=== PATIENT | female | born 1980 | race African-American/Black ===

== ENCOUNTER 2020-08-31 10:17 | Emergency (ER) | payer OTHER, SELFPAY ==
--- NOTE | ~2020-08-31 | US_ITS ---
EXAMINATION: US OB <=14 wk fetus w TV EXAM DATE: 08/31/2020 13:14 INDICATION: Abdominal pain, pelvic pain. . 1st trimester. TECHNIQUE: Pelvic obstetrical transabdominal sonogram was performed by a technologist. There are mu ltiple grayscale and Doppler images available for interpretation. There are no earlier studies of th is gestation for comparison. FINDINGS: Uterus measures 8.5 x 5.1 x 6.4 cm. At the uterine fundus there is anechoic cystic region, possible early intrauterine gestation sac with mean sac diameter of 8 mm corresponding to estimated gestational age 5 weeks 3 days. No yolk sac or pole identified within this. No extrauterine ges tation sac or pole identified. Right adnexa: The ovary measures 3.1 x 3.1 x 2.3 cm, has complex cystic lesion most likely the corpus luteal cyst measuring 2 cm. Ovarian vascular flow confirmed. Left adnexa: The ovary measures 3.0 x 1.2 x 1.7 cm and is morphologically normal. Ovarian vascular fl ow confirmed. IMPRESSION: 1. Possible early intrauterine gestation sac. Cannot confirm viable pole at this time. 2. Right ovarian cystic lesion likely corpus luteal cyst. Reviewed, dictated and finalized at location A.
[2020-08-31 10:48] VITALS: BP 125/88; PULSE 100; RESP 18; TEMP 35.9; O2SAT 100
[2020-08-31 11:54] LABS: Add Urine Microscopic? YES; Appearance Urine Cloudy (Clear); Bacteria Urine 1+ /hpf; Bilirubin Urine Negative (Negative); Blood Urine Negative (Negative); Color Urine Amber (Yellow); Glucose Urine UA Negative (Negative); Ketones Urine Negative (Negative); Leukocyte Esterase Ur 2+ LEU/UL (Negative); Mucus Urine Heavy /lpf; Nitrate Urine Negative (Negative); Protein Urine 2+ mg/dL (Negative); Specific Grav Ur 1.025 (1.001-1.035); Squamous Epithelial Cell Urine Many /hpf (Few); Urobilinogen Urine Negative mg/dL (<2.0); WBC Urine 21-30 /hpf
[2020-08-31 12:04] LABS: Basophils Percent Auto 0.5 % (0.2-1.2); Eosinophils Absolute Auto 0.1 K/mm3 (0-0.3); Eosinophils Percent Auto 1.6 % (0-4.4); Hematocrit 34.7 % (37.0-47.0); Hemoglobin 10.1 g/dL (12.0-15.0); Immature Granulocyte Absolute 0.01 K/mm3 (0.00-0.031); Immature Granulocyte Percent A 0.2 % (0-0.5); Lymphocytes Absolute Auto 1.96 K/mm3 (0.9-3.2); Lymphocytes Percent Auto 44.2 % (18.3-44.2); Mean Corpuscular HGB Conc 29.1 g/dl (32-36); Mean Corpuscular Hemoglobin 22.4 pg (26-34); Mean Corpuscular Volume 76.9 fl (80-100); Mean Platelet Volume 9.2 fl (7.4-10.4); Monocytes Absolute Auto 0.4 K/mm3 (0.1-0.6); Monocytes Percent Auto 9.9 % (2.6-8.5); Neutrophils Absolute Auto 1.9 K/mm3 (1.3-6.7); Neutrophils Percent Auto 43.6 % (45.5-73.1); Platelet Count Result 518 k/mm3 (150-375); Red Blood Count 4.51 M/mm3 (4.2-5.4); White Blood Count 4.4 K/mm3 (4.5-10.0)
[2020-08-31 12:12] LABS: Ovalocytes 1+ (NORMAL); Platelet Estimate Adequate (Adequate); Poikilocytosis 1+ (NORMAL)
[2020-08-31 12:17] LABS: Alanine Aminotransferase 15 U/L (4-35); Albumin Level 4.4 g/dL (3.5-5.1); Alkaline Phosphatase 67 U/L (38-126); Anion Gap 8 mmol/L (8-16); Aspartate Amino Transferase 27 U/L (14-36); Bilirubin,Total 0.2 mg/dL (0.2-1.3); Blood Urea Nitrogen 9 mg/dL (7-17); Calcium 9.2 mg/dL (8.4-10.2); Carbon Dioxide 22 mmol/L (22-30); Chloride 108 mmol/L (98-107); Estimated CRCL calculation 106 ml/min; Estimated Glomerular Filt Rate > 60; Glucose 100 mg/dL (65-105); Lipase 92 U/L (23-300); Sodium 138 mmol/L (137-145)
--- NOTE | 2020-08-31 12:17 | PC.NURSE ---
Pt ambulatory to ED RM 10.
--- NOTE | 2020-08-31 12:29 | ED.GENADULT ---
HPI - General Adult General Chief complaint: Unspecified Stated complaint: headache/backache Time Seen by Provider: 08/31/20 12:27 Source: patient Mode of arrival: ambulatory Limitations: no limitations History of Present Illness HPI narrative: Patient is a 40-year-old female complaining of right lower back pain, 5 out of 10, aching, nonradiating started 2 days ago. Patient also complaining of a headache, all, frontal, 2 out of 10, nonradiating that started 2 days ago. Patient states that she has a history of migraine headaches and this is her typical headache. Patient denies any speech or visual disturbance, focal weakness or numbness, unsteady gait, dizziness, neck pain or stiffness, nausea, vomiting, fever or chills. Related Data Allergies Allergy/AdvReac Type Severity Reaction Status Date / Time No Known Allergies Allergy Unverified 12/15/14 10:26 Review of Systems Review of Systems: All systems reviewed & are unremarkable except as noted in HPI and below Constitutional: Constitutional: Denies body ache(s), Denies chills, Denies excessive sweating, Denies fatigue, Denies fever(s), Denies headache(s), Denies lethargy, Denies malaise, Denies weakness and Denies weight loss Eyes: Eyes: Denies blurry vision, Denies change in vision and Denies loss of vision ENT: Denies dizziness, Denies ear discharge, Denies headache(s), Denies lip swelling, Denies epistaxis, Denies nasal congestion, Denies neck pain, Denies throat swelling and Denies tongue swelling Cardiovascular: Cardiovascular: Denies chest pain, Denies chest pain at rest, Denies chest pain with activity, Denies diaphoresis, Denies rapid heart rate, Denies edema, Denies irregular heart rhythm, Denies lightheadedness, Denies palpitations, Denies dyspnea and Denies dyspnea on exertion Respiratory: Respiratory: Denies chest congestion, Denies cough, Denies hemoptysis, Denies dyspnea and Denies dyspnea on exertion Gastrointestinal: Gastrointestinal: Denies abdominal pain, Denies melena, Denies hematochezia, Denies diarrhea, Denies nausea, Denies vomiting and Denies hematemesis Musculoskeletal: Musculoskeletal: Denies abnormal gait, Denies deformity, Denies joint swelling, Denies limited range of motion, Denies neck pain and Denies numbness Neurologic: Denies Abnormal speech present, Denies abnormal gait, Denies confusion, Denies dizziness, Denies focal weakness, Denies loss of vision, Denies numbness, Denies Other visual disturbances, Denies Sensory deficit (Neuro) and Denies weakness Psychiatric: Psychiatric: Denies confusion, Denies depression, Denies auditory hallucinations, Denies homicidal ideation and Denies suicidal ideation Endocrine: Endocrine: Denies cold intolerance, Denies excessive sweating, Denies fatigue, Denies heat intolerance and Denies palpitations Hematologic/Lymphatic: Hematologic/Lymphatic: Denies easy bleeding and Denies easy bruising Allergic/Immunologic: Allergic/Immunologic: Denies lip swelling, Denies throat swelling and Denies tongue swelling PMFSH Social History Social History Gender identity (if verbalized by the patient): Female Comments Past medical history: Headache Family history: Negative for any aneurysm, CVA, intracerebral hemorrhage Social history: Non-smoker no EtOH or drug use Exam Const: General: cooperative, healthy appearing, comfortable, no acute distress, well developed, alert and awake; No confusion Orientation/consciousness: oriented to person, oriented to place, oriented to time, patient oriented x3 and No confusion Limitations: no limitations Other: Patient laughing, making jokes about tell me I am not , not in any distress HENMT: Head: normal to inspection, normocephalic and atraumatic Ears: hearing grossly normal bilaterally, TM normal on the right and TM normal on the left General nose exam: Normal external nose present, Normal nares present and No nasal discharge present Face and sinus: normal facial exam
[2020-08-31 14:49] VITALS: BP 124/76; PULSE 76; RESP 20; O2SAT 99
[2020-08-31 15:57] VITALS: BP 122/85; PULSE 82; RESP 16
== END 2020-08-31 15:50 | disposition home or self-care (01) ==
PROVIDERS: General Practice; Emergency Provider Emergency Medicine; PCP Family Medicine
DX: O23.11 Infections of bladder in pregnancy, first trimester (principal); O99.351 Diseases of the nervous system complicating pregnancy, first trimester; G43.909 Migraine, unspecified, not intractable, without status migrainosus; O34.81 Maternal care for other abnormalities of pelvic organs, first trimester; N83.201 Unspecified ovarian cyst, right side; Z3A.01 Less than 8 weeks gestation of pregnancy
CPT/HCPCS: 36415; 76801; 76817; 80053; 81001; 81025; 83690; 84702; 85025; 87086; 87088; 99284

== ENCOUNTER 2020-10-01 02:45 | Emergency (ER) | payer OTHER, SELFPAY | END 2020-10-01 17:53 | disposition left against medical advice (07) | LOC: EXPBETH 10-15 17:28 | PROVIDERS: Emergency Provider Nurse Practitioner Family; PCP Family Medicine | DX: Z53.21 Procedure and treatment not carried out due to patient leaving prior to being seen by health care provider (principal) | CPT/HCPCS: 99199; 99211; G0463 ==

== ENCOUNTER 2020-10-01 13:56 | Emergency (ER) | payer OTHER, SELFPAY ==
--- NOTE | 2020-10-01 15:03 | PC.NURSE ---
left prior to being triaged
--- NOTE | 2020-10-01 15:29 | PC.NURSE ---
No answer when called for triage.
== END 2020-10-01 15:29 | disposition left against medical advice (07) ==
LOC: ANHED 15:44
PROVIDERS: PCP Family Medicine
DX: Z53.21 Procedure and treatment not carried out due to patient leaving prior to being seen by health care provider (principal)
CPT/HCPCS: 99199

== ENCOUNTER 2020-12-04 00:41 | Emergency (ER) | payer OTHER, SELFPAY ==
[2020-12-04 01:14] VITALS: BP 116/60; PULSE 59; RESP 16; TEMP 36.6; O2SAT 100
[2020-12-04 01:25] LABS: Basophils Percent Auto 0.3 % (0.2-1.2); Eosinophils Absolute Auto 0.2 K/mm3 (0-0.3); Eosinophils Percent Auto 3.3 % (0-4.4); Hematocrit 31.6 % (37.0-47.0); Hemoglobin 9.4 g/dL (12.0-15.0); Immature Granulocyte Absolute 0.02 K/mm3 (0.00-0.031); Immature Granulocyte Percent A 0.3 % (0-0.5); Lymphocytes Absolute Auto 2.51 K/mm3 (0.9-3.2); Lymphocytes Percent Auto 35.7 % (18.3-44.2); Mean Corpuscular HGB Conc 29.7 g/dl (32-36); Mean Corpuscular Hemoglobin 22.5 pg (26-34); Mean Corpuscular Volume 75.6 fl (80-100); Mean Platelet Volume 9.2 fl (7.4-10.4); Monocytes Absolute Auto 0.6 K/mm3 (0.1-0.6); Monocytes Percent Auto 8.5 % (2.6-8.5); Neutrophils Absolute Auto 3.7 K/mm3 (1.3-6.7); Neutrophils Percent Auto 51.9 % (45.5-73.1); Platelet Count Result 422 k/mm3 (150-375); Red Blood Count 4.18 M/mm3 (4.2-5.4)
--- NOTE | 2020-12-04 02:30 | PC.NURSE ---
pt seen ambulating out of ed. this rn asked her if she was leaving, pt didn't stop to talk, kept walking w/o difficulty. in no distress.
== END 2020-12-04 03:31 | disposition left against medical advice (07) ==
PROVIDERS: Emergency Provider General Practice; PCP Family Medicine
DX: N93.9 Abnormal uterine and vaginal bleeding, unspecified (principal)
CPT/HCPCS: 36415; 84702; 85025; 85461; 99199

== ENCOUNTER 2021-03-11 12:24 | Observation (INO) | payer OTHER, SELFPAY ==
[2021-03-11] VITALS (39 sets, daily range): BP systolic 125–126; BP diastolic 63–80; PULSE 79–216; RESP 20; TEMP 36.7; O2SAT 84–100; BMI 37.8
[2021-03-11] MEDS: TERBUTALINE SULFATE 1 MG/ML VIAL 0.25 MG SUB-Q ×2 (13:20→15:22)
--- NOTE | 2021-03-11 13:31 | OBADM ---
This patient, Bell Gtz, admitted to the OB room OB Post 116 for observation. Patient/family oriented to hospital policies and general routines including ID bracelet, bed and alarms, visiting hours, pain management, procedures, bathroom and other care routines, personal items, smoking policy, room service/diet, call light and visiting hours. Patient/Family are encouraged to report perceived risks to care and to ask questions if they do not understand what they are told or what they should do.
[2021-03-11 13:47] LABS: Add Urine Microscopic? YES; Appearance Urine Cloudy (Clear); Bacteria Urine Trace /hpf; Bilirubin Urine Negative (Negative); Blood Urine Negative (Negative); Calcium Oxalate Crystals Urine Present /hpf; Color Urine Yellow (Yellow); Glucose Urine UA Negative (Negative); Ketones Urine 1+ mg/dL (Negative); Leukocyte Esterase Ur 2+ LEU/UL (NEGATIVE); Mucus Urine Moderate /lpf; Nitrate Urine Negative (Negative); Protein Urine 1+ mg/dL (Negative); Specific Grav Ur 1.019 (1.001-1.035); Squamous Epithelial Cell Urine Many /hpf (Few); Urobilinogen Urine Negative mg/dL (<2.0); WBC Urine 21-30 /hpf (0-3)
--- NOTE | 2021-03-14 07:40 | P.PNOB_ITS ---
OB - Triage/Final Diagnosis Visit Information Comments/Additional reasons for admission: I have assessed the risk for this patient, Bell Gtz, and determined that she would benefit from observation care. Evaluation Laboratory results: Laboratory Tests 03/11/21 13:36 Urine Color Yellow Urine Appearance Cloudy H Urine pH 6.0 Ur Specific [place] 1.019 Urine Protein 1+ H Urine Glucose (UA) Negative Urine Ketones 1+ H Ur Blood (Man) Negative Urine Nitrate Negative Urine Bilirubin Negative Urine Urobilinogen Negative Ur Leukocyte Esterase 2+ H Urine RBC 3-5 H Urine WBC 21-30 H Ur Squamous Epith Cells Many H Calcium Oxalate Crystal Present Urine Bacteria Trace Urine Mucus Moderate H Final Diagnosis (1) contractions: Code(s): O47.00 - False labor before 37 completed weeks of gestation, unspecified trimester Status: Acute
== END 2021-03-11 17:25 | disposition home or self-care (01) ==
PROVIDERS: Admitting Provider Obstetrics & Gynecology; PCP Family Medicine; Visit Provider Obstetrics & Gynecology
DX: O47.03 False labor before 37 completed weeks of gestation, third trimester (principal); Z3A.32 32 weeks gestation of pregnancy
CPT/HCPCS: 81001; 87086; 87088; 96372; G0378; G0379; J3105

== ENCOUNTER 2021-04-04 23:32 | Observation (INO) | payer OTHER, SELFPAY ==
[2021-04-04 23:46] VITALS: BP 130/87; PULSE 92
[2021-04-05 00:01] VITALS: BP 121/78; PULSE 99
[2021-04-05 00:16] VITALS: BP 129/79; PULSE 94
[2021-04-05 00:31] VITALS: BP 126/82; PULSE 91
[2021-04-05] MEDS: AMPICILLIN 2 GM/NS 100 ML 2 GM/100 ML BAG IVPB (01:00)
[2021-04-05 01:22] VITALS: BMI 37.8
[2021-04-05 01:39] LABS: Hematocrit 35.1 % (37.0-47.0); Hemoglobin 10.6 g/dL (12.0-15.0); Mean Corpuscular HGB Conc 30.2 g/dl (32-36); Mean Corpuscular Hemoglobin 23.7 pg (26-34); Mean Corpuscular Volume 78.5 fl (80-100); Mean Platelet Volume 9.6 fl (7.4-10.4); Platelet Count Result 396 k/mm3 (150-375); Red Blood Count 4.47 M/mm3 (4.2-5.4); Red Cell Distribution Width 19.2 % (11.5-14.5); White Blood Count 6.6 K/mm3 (4.5-10.0)
[2021-04-05] MEDS: LACTATED RINGERS 1,000 ML 999 ML IV CONT (02:16)
[2021-04-05 02:58] LABS: Amphetamine Screen Urine Negative (Negative); Barbiturate Screen Urine Negative (Negative); Benzodiazepines Screen Urine Negative (Negative); Cannabinoid Screen Urine Negative (Negative); Cocaine Screen Urine Negative (Negative); Methadone Screen Urine Negative (Negative); Opiate Screen Urine Negative (Negative); Phencyclidine Screen Urine Negative (Negative)
--- NOTE | 2021-04-05 03:55 | OBADM ---
This patient, Bell Gtz, admitted to the OB room Labor/Delivery/Recovery 107 for observation. Patient/family oriented to hospital policies and general routines including ID bracelet, bed and alarms, visiting hours, pain management, procedures, bathroom and other care routines, personal items, smoking policy, room service/diet, and visiting hours. Patient/Family are encouraged to report perceived risks to care and to ask questions if they do not understand what they are told or what they should do.
[2021-04-07 10:11] LABS: Rapid Plasma Reagin Non-Reactive (NonReactive)
--- NOTE | 2021-04-15 08:18 | PM.OBTRLD ---
OB - Triage/Final Diagnosis Visit Information Comments/Additional reasons for admission: I have assessed the risk for this patient, Bell Gtz, and determined that she would benefit from observation care. Evaluation Laboratory results: Laboratory Tests 04/05/21 04/05/21 04/05/21 01:17 01:17 01:17 WBC 6.6 RBC 4.47 Hgb 10.6 L Hct 35.1 L MCV 78.5 L MCH 23.7 L MCHC 30.2 L RDW 19.2 H Plt Count 396 H MPV 9.6 Urine Opiates Screen Urine Methadone Screen Ur Barbiturates Screen Ur Phencyclidine Scrn Ur Amphetamine Screen U Benzodiazepines Scrn Urine Cocaine Screen U Cannabinoids Screen RPR Non-reactive Blood Type O Positive Antibody Screen Negative 04/05/21 01:23 WBC RBC Hgb Hct MCV MCH MCHC RDW Plt Count MPV Urine Opiates Screen Negative Urine Methadone Screen Negative Ur Barbiturates Screen Negative Ur Phencyclidine Scrn Negative Ur Amphetamine Screen Negative U Benzodiazepines Scrn Negative Urine Cocaine Screen Negative U Cannabinoids Screen Negative RPR Blood Type Antibody Screen Final Diagnosis (1) contractions: Code(s): O47.00 - False labor before 37 completed weeks of gestation, unspecified trimester Status: Acute
== END 2021-04-05 04:15 | disposition home or self-care (01) ==
PROVIDERS: Admitting Provider Obstetrics & Gynecology; PCP Family Medicine; Visit Provider Obstetrics & Gynecology
DX: O47.03 False labor before 37 completed weeks of gestation, third trimester (principal); Z3A.35 35 weeks gestation of pregnancy
CPT/HCPCS: 36415; 80307; 85027; 86592; 86850; 86900; 86901; 96374; G0378; G0379; J0290; J7120

== ENCOUNTER 2021-04-16 06:38 | Observation (INO) | payer OTHER, SELFPAY ==
[2021-04-16 07:30] VITALS: BMI 38.0
--- NOTE | 2021-04-16 07:30 | OBADM ---
This patient, Bell Gtz, admitted to the OB room 106 at 0638 for observation due to contractions. Patient/family oriented to hospital policies and general routines including ID bracelet, bed and alarms, visiting hours, pain management, procedures, bathroom and other care routines, personal items, smoking policy, room service/diet, and visiting hours. Patient/Family are encouraged to report perceived risks to care and to ask questions if they do not understand what they are told or what they should do.
--- NOTE | 2021-04-25 07:18 | PM.OBTRLD ---
OB - Triage/Final Diagnosis Visit Information Comments/Additional reasons for admission: I have assessed the risk for this patient, Bell Gtz, and determined that she would benefit from observation care. Final Diagnosis (1) contractions: Code(s): O47.00 - False labor before 37 completed weeks of gestation, unspecified trimester Status: Acute
== END 2021-04-16 10:42 | disposition home or self-care (01) ==
PROVIDERS: Admitting Provider Obstetrics & Gynecology; PCP Family Medicine; Visit Provider Obstetrics & Gynecology
DX: O47.1 False labor at or after 37 completed weeks of gestation (principal); Z3A.37 37 weeks gestation of pregnancy
CPT/HCPCS: G0378; G0379

== ENCOUNTER 2021-04-20 10:22 | Observation (INO) | payer OTHER, SELFPAY ==
--- NOTE | 2021-04-22 13:24 | PM.OBTRLD ---
OB - Triage/Final Diagnosis Visit Information Date of evaluation: 04/20/21 Reason for evaluation: threatened labor Comments/Additional reasons for admission: I have assessed the risk for this patient, Bell Gtz, and determined that she would benefit from observation care.
== END 2021-04-20 11:15 | disposition home or self-care (01) ==
PROVIDERS: Admitting Provider Obstetrics & Gynecology; PCP Family Medicine; Visit Provider Obstetrics & Gynecology
DX: O47.1 False labor at or after 37 completed weeks of gestation (principal); Z3A.38 38 weeks gestation of pregnancy
CPT/HCPCS: 84112; G0378; G0379

== ENCOUNTER 2021-04-21 00:02 | Inpatient (IN) | payer OTHER, SELFPAY ==
[2021-04-21] VITALS (18 sets, daily range): BP systolic 114–152; BP diastolic 65–92; PULSE 82–116; RESP 12–20; TEMP 36.4–37.1; O2SAT 99–100; BMI 37.0
--- NOTE | 2021-04-21 00:02 | LDADM ---
This patient, Bell Gtz, was admitted to Labor/Delivery/Recovery 106 on 04/21/21 at 00:02. Plans for labor, pain management and were discussed with patient. Patient/family oriented to hospital policies and general routines including ID bracelet, bed and alarms, visiting hours, pain management, procedures, bathroom and other care routines, personal items, smoking policy, room service/diet and guest tray routines, infant security routines, and visiting hours. Patient/Family are encouraged to report perceived risks to care and to ask questions if they do not understand what they are told or what they should do. See OBIX for further documentation.
--- OUTSIDE RECORDS SUMMARY | 2021-04-21 00:21 | XMS_ITS | Encounter Summary ---
:1980 Author Reason for Visit None recorded. Assessment and Plan 1. Placenta circumvallata ? US, obstetric, follow-up Discussion Note: None recorded.Patient educational handouts: No information available. Plan of Care Reminders Provider Appointments Ob Routine Silvio Stiles, ROSY 04/28/2021 1:45PM ? U/S OB BPP Ultras ound, TECH 04/28/2021 1:00PM ? Nst Nst, , EQUI P 04/28/2021 12:30PM ? Ob Routine Zulma Stiles CNM 05/05/2021 1:45PM ? U/S OB BPP Ultras ound, TECH 05/05/2021 1:00PM ? Nst Nst, , EQUI P 05/05/2021 12:30PM Lab None ? ? recorded. Referral None ? ? recorded. Procedures None ? ? recorded. Surgeries None ? ? recorded. Imaging Franco ALBARADO Obstetric, Follow-up 02/17/2021 Medications Name Start Date ? ? hydrocortis
--- OUTSIDE RECORDS SUMMARY | 2021-04-21 00:21 | XMS_ITS | Encounter Summary ---
:1980 Author Reason for Visit OB visit Assessment and Plan 1. Advanced maternal age 2. care: grand multipa rity 3. Vaginal delivery following pr evious section 4. History of premature delivery Discussion Note: None recorded.Patient educational handouts: No information available. Plan of Care Reminders Provider Appointments Ob Routine Silvio Stiles, JACQUE 04/28/2021 1:45PM ? U/S OB BPP Ultras ound, TECH 04/28/2021 1:00PM ? Nst Nst, , EQUI P 04/28/2021 12:30PM ? Ob Routine JACQUE Stanford 05/05/2021 1:45PM ? U/S OB BPP Ultras ound, TECH 05/05/2021 1:00PM ? Nst Nst, , EQUI P 05/05/2021 12:30PM Lab None ? ? recorded. Referral None ? ? recorded. Procedures None ? ? recorded. Surgeries None ? ? recorded. Imaging None ? ? recorded. Medications Name Start Date ?
--- OUTSIDE RECORDS SUMMARY | 2021-04-21 00:21 | XMS_ITS | Encounter Summary ---
:1980 Author Reason for Visit OB visit OB [id number] EDC 05/04/2021 LMP 08/05/2020 Assessment and Plan Assessment Note Patient is _25__weeks . Dis cussed plan. 1. Routine care Discussion Note: None recorded.Patient educational handouts: No information available. Plan of Care Reminders Provider Appointments Ob Routine Silvio Stiles CNM 04/28/2021 1:45PM ? U/S OB BPP Ultras [...] ? recorded. Medications Name Start Date ? ?
--- OUTSIDE RECORDS SUMMARY | 2021-04-21 00:21 | XMS_ITS | Encounter Summary ---
:1980 Author Reason for Visit OB visit OB [id number] EDC 05/04/2021 LMP Assessment and Plan Assessment Note Patient is __32_weeks . Dis cussed plan. 1. Routine care [...]
--- OUTSIDE RECORDS SUMMARY | 2021-04-21 00:21 | XMS_ITS ---
:1980 Author Care Team Providers Name Role Phone Mary Mackay Primary Care Provider Unavailable Allergies Code Code System Name Reaction Severity Status Onset NKDA ? Medications Name Status Start Date Stop Date ? ? azithromycin 500 mg tablet Active ? Not a vailable [place] 8 % vaginal gel Completed ? 04/09/20 Insert 1 applicatorful every day by vaginal route at bedtime. cyclobenzaprine 10 mg tablet Completed ? ergocalciferol (vitamin D2) 1,250 mcg Completed ? 04/09/2021 (50,000 unit) capsule metronidazole 500 mg tablet Active ? Not available hydrocortisone 2.5 % topical cream with Active ? Not available perineal applicator naproxen 500 mg tablet Completed ? nitrofurantoin Completed ? 01/24/2021 monohydrate/macrocrystals 100 mg capsule ondansetron HCl 4 mg tablet Active ? Not available Active ? Not available Problems Name Status Onset Date Source ? Active 10/29/2020 ? Vaginal Delivery Following Previous Active ? ? Section Care: Grand Multiparity Active ? ? History of Premature Delivery Active ? ? Advanced Maternal Age Active ? ? Procedures Date Name Performed by ? 09/29/1999 Section Information not hunter nevarez
--- OUTSIDE RECORDS SUMMARY | 2021-04-21 00:21 | XMS_ITS | Encounter Summary ---
:1980 Author Reason for Visit None recorded. Assessment and Plan 1. Maternal obesity complicating , childbirth and the puerperium, antepartum ? US, obstetric, biophysical profile + non-stress test Discussion Note: None recorded.Patient educational handouts: No [...] , EQUI P 05/05/2021 12:30PM Lab None recorded. ? ? Referral None recorded. ? ? Procedures None recorded. ? ? Surgeries None recorded. ? ? Imaging US, Obstetric, Amber Irvin
--- OUTSIDE RECORDS SUMMARY | 2021-04-21 00:21 | XMS_ITS | Encounter Summary ---
:1980 Author Reason for Visit OB visit Assessment and Plan Assessment Note Patient is ___weeks . Discu ssed plan. 1. Routine care Discussion Note: None [...] recorded. Medications Name Start Date ? ? hydroco
--- OUTSIDE RECORDS SUMMARY | 2021-04-21 00:21 | XMS_ITS | Encounter Summary ---
:1980 Author Reason for Visit None recorded. Assessment and Plan 1. Advanced maternal age ? non-stress test Discussion Note: None recorded.Patient educational handouts: No information available. Plan of Care Reminders Provider Appointments Ob Routine Silvio Stiles, [facility] 04/28/2021 1:45PM ? U/S OB BPP Ultras [...] recorded. Surgeries None ? ? recorded. Imaging Non-stress [place] Test 04/09/2021 Medications Name Start Date ? ? hydrocorti
--- OUTSIDE RECORDS SUMMARY | 2021-04-21 00:21 | XMS_ITS | Encounter Summary ---
:1980 Author Reason for Visit OB visit OB [id number] EDC 05/04/2021 LMP 08/05/2020 Assessment and Plan Assessment Note Patient is __35_weeks . Dis cussed plan. 1. Hemorrhoids ? Anusol-HC 2.5 % topical cr eam with perineal applicator 2. Routine care Discussion Note: None recorded.Patient educational [...]
--- OUTSIDE RECORDS SUMMARY | 2021-04-21 00:21 | XMS_ITS | Encounter Summary ---
:1980 Author Reason for Visit None recorded. Assessment and Plan 1. Advanced maternal age ? non-stress test Discussion Note: None recorded.Patient educational handouts: No information available. Plan of Care Reminders Provider Appointments Ob Routine Silvio Stiles, [facility] 04/28/2021 1:45PM ? U/S OB BPP Ultras [...] ? recorded. Imaging Non-stress [place] Test 04/14/2021 Medications Name Start Date ? ? hydrocorti
--- OUTSIDE RECORDS SUMMARY | 2021-04-21 00:21 | XMS_ITS | Encounter Summary ---
:1980 Author Reason for Visit None recorded. Assessment and Plan 1. Advanced maternal age ? US, obstetric, biophysical profile + non-stress test Discussion Note: None recorded.Patient educational handouts: No information available. Plan of Care Reminders Provider Appointments Ob Routine Silvio Stiles, ROSY 04/28/2021 1:45PM ? U/S OB BPP Ultras ound, TECH 04/28/2021 1:00PM ? Nst Nst, , EQUI P 04/28/2021 12:30PM ? Ob Routine Zulma Stiles, JACQUEM 05/05/2021 1:45PM ? U/S OB BPP Ultras ound, TECH 05/05/2021 1:00PM ? Nst Nst, , EQUI P 05/05/2021 12:30PM Lab None recorded. ? ? Referral None recorded. ? ? Procedures None recorded. ? ? Surgeries None recorded. ? ? Imaging US, Obstetric, Amber claudio Biophysical Profile + 04/14/2021 Non-stress Test
--- OUTSIDE RECORDS SUMMARY | 2021-04-21 00:21 | XMS_ITS | Encounter Summary ---
:1980 Author Reason for Visit OB visit 34w2d Assessment and Plan 1. Routine care Discussion Note: None recorded.Patient [...] recorded. Medications Name Start Date ? ? hydrocortisone 2.5 % topical cream with perineal appli cator ? APPLY A THIN LAYER TO THE AFFECTED AR
--- OUTSIDE RECORDS SUMMARY | 2021-04-21 00:21 | XMS_ITS | Encounter Summary ---
:1980 Author Reason for Visit OB visit 35W2D Assessment and Plan 1. Routine care Discussion [...]
--- OUTSIDE RECORDS SUMMARY | 2021-04-21 00:21 | XMS_ITS | Encounter Summary ---
:1980 Author Reason for Visit None recorded. Assessment and Plan 1. AND/OR placental disord er affecting management of mother ? US, obstetric, limited Discussion Note: None recorded.Patient educational handouts: No information available. Plan of Care Reminders Provider Appointments Ob Routine Silvio Stiles, JACQUE 04/28/2021 1:45PM ? U/S OB BPP Ultras ound, TECH 04/28/2021 1:00PM ? Nst Nst, , EQUI P 04/28/2021 12:30PM ? Ob Routine Zulma Stiles, ROSY 05/05/2021 1:45PM ? U/S OB BPP Ultras ound, TECH 05/05/2021 1:00PM ? Nst Nst, , EQUI P 05/05/2021 12:30PM Lab None ? ? recorded. Referral None ? ? recorded. Procedures None ? ? recorded. Surgeries None ? ? recorded. Imaging , Franco Obstetric, Limited 03/11/2021 Medications Name Start Date ? ?
--- OUTSIDE RECORDS SUMMARY | 2021-04-21 00:21 | XMS_ITS | Encounter Summary ---
:1980 Author Reason for Visit None recorded. Assessment and Plan 1. Uterine size for dates discre pancy ? US, obstetric, follow-up Discussion Note: None [...] ? recorded. Imaging Franco ALBARADO Obstetric, Follow-up 03/25/2021 Medications Name Start Date ? ?
[2021-04-21] MEDS: AMPICILLIN 2 GM/NS 100 ML 2 GM/100 ML BAG IVPB (00:25)
[2021-04-21] MEDS: LACTATED RINGERS 1,000 ML 125 ML IV CONT ×3 (00:25→03:34)
[2021-04-21 00:35] LABS: Basophils Percent Auto 0.2 % (0.2-1.2); Eosinophils Absolute Auto 0.1 K/mm3 (0-0.3); Eosinophils Percent Auto 1.1 % (0-4.4); Hematocrit 34.6 % (37.0-47.0); Hemoglobin 10.7 g/dL (12.0-15.0); Immature Granulocyte Absolute 0.01 K/mm3 (0.00-0.031); Immature Granulocyte Percent A 0.2 % (0-0.5); Lymphocytes Absolute Auto 1.81 K/mm3 (0.9-3.2); Lymphocytes Percent Auto 28.5 % (18.3-44.2); Mean Corpuscular HGB Conc 30.9 g/dl (32-36); Mean Corpuscular Hemoglobin 23.9 pg (26-34); Mean Corpuscular Volume 77.4 fl (80-100); Mean Platelet Volume 9.1 fl (7.4-10.4); Monocytes Absolute Auto 0.6 K/mm3 (0.1-0.6); Monocytes Percent Auto 9.4 % (2.6-8.5); Neutrophils Absolute Auto 3.9 K/mm3 (1.3-6.7); Neutrophils Percent Auto 60.6 % (45.5-73.1); Platelet Count Result 362 k/mm3 (150-375); Red Blood Count 4.47 M/mm3 (4.2-5.4); Red Cell Distribution Width 18.4 % (11.5-14.5); White Blood Count 6.4 K/mm3 (4.5-10.0)
--- NOTE | 2021-04-21 00:50 | WPDOBADMIT ---
Obstetrics - Admit Note Admission Note: record reviewed. No pertinent additions to the history and/or any subsequent changes in the physical findings that are not consistent with the expected course of the were found. Pt is a hx previous for PTL, has had successful x 4. GBS + arrived in active labor Additions to the history and/or subsequent changes in the physical findings follow. None.
[2021-04-21] MEDS: OXYTOCIN 30 UNITS/NS 500 ML 30 UNITS/500 ML BAG 999 UNITS IV CONT (04:05)
--- NOTE | 2021-04-21 04:14 | PM.OBPRVD ---
OB - Delivery Note Procedure Delivery date: 04/21/21 Procedure: Intrapartal events: None Induction method: none Delivery augmentation: rupture of membranes Delivery monitor: external FHT and external uterine Route of delivery: Episiotomy description: None Laceration Description: None Specimen: No Quantitative Blood Loss (ml): 33 Anesthesia type: None Disposition: floor Floweree Baby Date of : 04/21/21 Time of : 04:02 Weeks of gestation at delivery: 38 gender: Female Weight (pounds): 6 Weight (ounces): 12 presentation: vertex position: Left Occiput Anterior Placenta delivery description: Spontaneous cord vessel description: 3 Vessels, Nuchal Cord, Loose, Reduced and Clamped/Cut score one minute: 9 score five minutes: 9 Narrative: mother and baby skin to skin in stable condition
[2021-04-21] MEDS: OXYTOCIN 30 UNITS/NS 500 ML 30 UNITS/500 ML BAG 125 UNITS IV CONT (04:55)
[2021-04-21] MEDS: IBUPROFEN 600 MG TABLET PO ×2 (05:21→15:49)
[2021-04-21] MEDS: WITCH HAZEL 40 PADS 1 PAD TOPICAL (05:21)
[2021-04-21] MEDS: BENZOCAINE 20% AER SPR (*SP) 56 GM CAN 1 SPRAY TOPICAL (05:21)
--- NOTE | 2021-04-21 08:15 | PC.NURSE ---
Consult with pt.,mother called out to assist with waking for feeding. Mother reports eagerly fed for first feeding. This is mother's 9th child to breastfeed. Infant is able to freely thrust tongue past gum ridge and flange both lips. Skin is intact on both nipples, no redness and bruising noted. Reviewed feeding cues, frequencies, duration of feedings, feeding elimination flow sheet, and signs of adequate intake. Demonstrated stimulation techniques to wake infant for feeding. Assisted with infant to breast. Reviewed positioning/alignment in cross cradle, holding breast in ?U? hold and guided asymmetrical latch on. Reviewed rational for each. made a few attempts to latch and return to sleep, attempt for 15 minutes. Advised to skin to skin and attempt again in 30 minutes. Instructed mother to call out for RN assistance if infant shows feeding cues before 30 minutes.
--- NOTE | 2021-04-21 09:00 | PC.NURSE ---
Assisted with infant to breast. Reviewed positioning/alignment in cross cradle, holding breast in ?U? hold and guided asymmetrical latch on. Reviewed rational for each. made a few attempts to latch and return to sleep, attempt for 15 minutes. Advised to skin to skin and attempt again in for 1 hour . Instructed mother to call out for RN assistance if shows feeding cues before 30 minutes.
--- NOTE | 2021-04-21 09:17 | OBPPTRN ---
[id number] Patient transferred to post room #292 via W/C. Support person present. Oriented to unit, room, information board, rooming in, admission packet and security measures. Patient verbalizes understanding.
--- NOTE | 2021-04-21 10:05 | PC.NURSE ---
Assisted with infant to breast. Reviewed positioning/alignment in cross cradle, holding breast in ?U? hold and guided asymmetrical latch on. Reviewed rational for each. made a few attempts to latch and return to sleep, attempt for 15 minutes. attempted with sugar water on a gloved finger. Weak suck noted. Advised to skin to skin and attempt again in for 1 hour . Instructed mother to call out for RN assistance if shows feeding cues before 30 minutes.
--- NOTE | 2021-04-21 11:30 | PC.NURSE ---
Assisted with infant to breast. Reviewed positioning/alignment in cross cradle, holding breast in ?U? hold and guided asymmetrical latch on. Reviewed rational for each. made a few attempts to latch and return to sleep, attempt for 15 minutes. Discussed feeding freq and timing from last feeding. Mother will supplement infant 10-15 mls. Report to primary RN for infant blood glucose.
[2021-04-21 14:39] LABS: Rapid Plasma Reagin Non-Reactive (NonReactive)
[2021-04-21] MEDS: DOCUSATE SODIUM 100 MG CAPSULE PO (15:49)
[2021-04-21] MEDS: ACETAMINOPHEN 325 MG TABLET 650 MG PO (19:56)
[2021-04-21] MEDS: DIBUCAINE 1% OINTMENT 30 GM TUBE 1 APPLIC TOPICAL (19:56)
[2021-04-22 03:30] VITALS: BP 135/75; PULSE 81; RESP 16; TEMP 36.4; O2SAT 100
[2021-04-22 05:13] LABS: Hematocrit 31.8 % (37.0-47.0); Hemoglobin 9.7 g/dL (12.0-15.0)
--- NOTE | 2021-04-22 07:40 | PM.OBPNVD ---
OB - PN: Subj Subjective Date/time seen: 04/22/21 07:40 Patient comments: no complaints baby status: doing well OB - PN: Obj Data Labs CBC & Chem 7: 04/22/21 05:06 Labs: Laboratory Results - last 24 hr 04/21/21 04/22/21 00:31 05:06 Hgb 9.7 L Hct 31.8 L RPR Non-reactive OB - PN A/P Plan day: 1 Plan: routine care Time Spent With Patient Time: Total time spent is greater than 50% in coordination of care (as documented) at patient's floor/unit and/or counseling patient: Time with patient: less than 15 minutes Review of Systems Review of Systems: All systems reviewed & are unremarkable except as noted in HPI and below Exam Narrative: Fundus firm and vaginal flow controlled. No lower ext redness, warmth, or edema. Negative homans. Const: General: comfortable Chest: Breast/axilla inspection: normal inspection of the breasts Resp: Effort & Inspection: normal respiratory effort Cardio: Rate: regular rate GI: GI Palp: Yes Soft to palpation Psych: Appearance: grossly normal Affect: normal affect Attitude: cooperative Thought content: Yes Normal thought content present Judgement: Good judgement present (Psych)
[2021-04-22 08:05] VITALS: BP 125/78; PULSE 88; RESP 18; TEMP 37.4; O2SAT 100
[2021-04-22] MEDS: MULTIVIT/MIN/PREN/FOL AC/IRON TABLET 1 TAB PO (08:27)
[2021-04-22] MEDS: IBUPROFEN 600 MG TABLET PO (08:28)
[2021-04-22] MEDS: DOCUSATE SODIUM 100 MG CAPSULE PO (08:28)
[2021-04-22] MEDS: POLYSACCHARIDE IRON COMPLEX 150 MG CAPSULE PO (08:28)
--- NOTE | 2021-04-22 09:00 | PC.NURSE ---
Consult with pt., observed mother is able to independently latch with appropriate positioning/alignment. is more awake and eagerly latches on first attempt with long rhythmical draws and frequent swallowing noted. She denies any nipple discomfort, is feeding as required and waking to feed if needed. Infant has had several 8 effective feedings in the past 24 hours, and is currently meeting outcomes for weight, output, jaundice and feeding frequencies. Mother will continue to supplement until her milk is in and is more consistently . Mother states she feels confident to continue effective /supplementing at home. Reviewed transition to breast milk, signs of adequate intake, and engorgement/relief. Instructed to call ICP if intake/output less than required. Reviewed regular medications mother is taking. Information provided per Kateryna. Reviewed community resources on the [employer] website and in the Mom/Baby guide. Information on outpatient services provided. Mother has no further questions at this time. Instructed feeding should be initiated three hours from start of last feeding or if feeding cues are noted before until seen by ICP. Mother voiced understanding of information shared.
--- NOTE | 2021-04-22 16:31 | PC.NURSE ---
Patient viewed the discharge video Mother & Baby Care, The First Two Weeks . Patient was given the opportunity and encouraged to ask questions. Patient verbalized understanding of information shared and has been given the mother/baby guide for home reference.
[2021-04-23 11:29] VITALS: BP 131/82; PULSE 100; RESP 20; TEMP 37.3; O2SAT 99
--- NOTE | 2021-05-13 19:09 | PM.OBDSVD ---
DS: Admitting Diagnosis Discharge Date 04/22/21 Admitting Diagnosis labor OB - DS: Summary OB Procedures : None OB Procedures Intrapartum: Spontaneous Vag Delivery OB Procedures: : None Time Spent with Patient Time attestation: Total time spent providing and/or coordinating discharge services: Discharge Plan Discharge Attending physician on discharge: Catie Alfaro Consulting providers: Catie Alfaro ; Zulma Stiles Discharging Clinician: Zulma Stiles Patient Disposition: Home, Self-Care Activity: pelvic rest Diet: as tolerated Discharge Instructions: Education: Mom and Baby Guide Given to: Mother Follow-Up: Call your delivering provider's office for an appointment to be seen in: 6 Weeks Mom and baby should come to the [facility] for the follow-up appointment. Appointment Date/Time: Friday, April 23, 2021 at 11:00 am What to expect at your follow-up visit: Physical Assessment Call [phone] if you are unable to keep your appointment time. BREAST CARE: * Wear a snug supportive bra. * For engorgement discomfort: Breast Feeding: * Apply warm moist washcloths * Express milk as needed to relieve engorgement * Wear loose clothing Bottle Feeding: * May apply ice packs * For sore nipples: * Identify correct latch-on * Apply warm moist washcloths before and after nursing * Air dry nipples after nursing * May apply Lansinoh cream to nipples EPISIOTOMY/PERINEAL CARE: * Until bleeding stops, use your jackie bottle after urinating * Change your pad frequently throughout the day * You may take sitz baths several times a day (fill your bathtub with warm water and soak for 20 minutes.) Do NOT bathe in the water * No tub baths until seen by your physician - You may shower ACTIVITY: * Rest as much as possible. * Do not exercise or lift anything heavier than your baby (such as laundry or other children.) * Avoid stairs or driving as much as possible. * Do not put anything into the vagina. No douching, tampons, or sexual activity until seen by physician. NOTIFY PHYSICIAN IF YOU HAVE ANY QUESTIONS OR IF ANY OF THE FOLLOWING SYMPTOMS OCCUR: * If your episiotomy or incision becomes red, swollen, or more painful than what you have experienced in the hospital. * If your vaginal bleeding becomes foul smelling. * If your vaginal bleeding becomes more heavy than a period or if your bleeding changes from pink to bright red. However, you may pass an occasional walnut-sized clot once or twice for the first week . * If you experience a sharp, shooting pain in you calves. * If you discover a hard, reddened area on your breast or if you experience flu-like symptoms. DIET: * Eat regular, well-balanced meals. * Drink plenty of fluids daily. If , drink to thirst. Patient Instructions: Antibiotic Form Follow-up/Referrals: Catie Alfaro CNM [Certified Nurse Packaging Sales Consultant] - Discharge Medications: Continued Slow Fe 142 mg (45 mg iron) Tablet Extended Release 142 mg PO DAILY RF: 0 PNV [id number] [] 28 mg iron- 800 mcg Tablet 1 tablet PO DAILY RF: 0 Date of admission: 04/21/21 00:02 Primary Care Provider: Quique Hillman Admitting Provider: Fabian Davis Attending physician on admission: Fabian Davis Condition: Stable
== END 2021-04-22 11:50 | disposition home or self-care (01) | DRG 560 ==
LOC: ANHLDR 00:30 → ANHOB2 06:48
PROVIDERS: Advanced Practice Midwife; Admitting Provider Obstetrics & Gynecology; PCP Family Medicine; Visit Provider Obstetrics & Gynecology
DX: O34.211 Maternal care for low transverse scar from previous cesarean delivery (principal); Z37.0 Single live birth; Z3A.38 38 weeks gestation of pregnancy; O99.824 Streptococcus B carrier state complicating childbirth; O69.81X0 Labor and delivery complicated by cord around neck, without compression, not applicable or unspecified
CPT/HCPCS: 36415; 85014; 85018; 85025; 86592; 86850; 86900; 86901; A9270; J0290; J2590; J7120

== ENCOUNTER 2021-12-20 18:34 | Emergency (ER) | payer OTHER, SELFPAY ==
[2021-12-20 18:44] VITALS: BP 136/79; PULSE 92; RESP 20; TEMP 37.1; O2SAT 100
--- NOTE | 2021-12-20 18:57 | ED.EYEPROB ---
HPI - Eye Problem General Chief complaint: Eye Problems Stated complaint: Eye Injury Time Seen by Provider: 12/20/21 18:57 Source: patient Mode of arrival: ambulatory Limitations: no limitations History of Present Illness HPI Narrative: 41-year-old female presented for complaint of right eye injury today. She states her infant poked her in the eye at around 0800 today. Since then it has continued to be painful, endorses photosensitivity and tearing. Has not taken anything for symptoms. chief complaint: eye pain Related Data Allergies Allergy/AdvReac Type Severity Reaction Status Date / Time No Known Allergies Allergy Verified 12/20/21 18:59 Review of Systems Review of Systems: CONSTITUTIONAL: Denies body aches, fever, chills EYES:Endorses pain to right eye; denies FB sensation ENT: Denies rhinorrhea, congestion, sore throat, or otalgia. CARDIOVASCULAR: Denies chest pain, palpitations RESPIRATORY: Denies cough or dyspnea. GASTROINTESTINAL: Denies abdominal pain, nausea, vomiting, or diarrhea. SKIN: Denies rash, itching, or wounds. MUSCULOSKELETAL: Denies back pain, joint pain, or myalgia. NEUROLOGIC: Denies headache All systems reviewed & are unremarkable except as noted in HPI and below PMFSH Past Medical History Medical History Kidney stones Surgical History Surgical History History of delivery Family History Family History Other Family history unknown Social History Social History Smoking status: Never smoker Alcohol intake: never Substance use: never Gender identity (if verbalized by the patient): Female Spiritual care concerns: No Comments At time of signature, I have reviewed and agree with nursing past medical, surgical, social and family history unless otherwise noted. Please see nursing chart for further information. There is no relevant family history pertinent to the presenting complaint Exam Narrative: GENERAL: Well-appearing HEAD: Normocephalic, atraumatic. EYES: Mild right eye lid swelling, guarding the eye; No conjunctival injection, EOMI. Lid eversion showed no FB. Corneal abrasion found with morales lamp. ENT: Mucous membranes pink and moist. No rhinorrhea. SKIN: Warm, dry, no rash. Normal skin turgor. NEURO: No focal deficits. Alert and oriented x3 PSYCH: Normal affect. Course Course Emergency Course: Patient is aware of diagnosis, understands and agrees to treatment plan. Anticipatory guidance given. Patient agrees to follow-up as directed and is aware of reasons to seek care at the emergency department. Portions of this record may have been created with voice recognition software Level of Care: Express Care Visit Vital Signs Vital signs: Vital Signs Temperature 98.7 F 12/20/21 18:44 Pulse Rate 92 12/20/21 18:44 Respiratory Rate 20 12/20/21 18:44 Blood Pressure 136/79 12/20/21 18:44 Pulse Oximetry 100 12/20/21 18:44 Oxygen Delivery Room Air 12/20/21 18:44 Temperature 98.7 F 12/20/21 18:44 Pulse Rate 92 12/20/21 18:44 Respiratory Rate 20 12/20/21 18:44 Blood Pressure 136/79 12/20/21 18:44 Pulse Oximetry 100 12/20/21 18:44 Oxygen Delivery Room Air 12/20/21 18:44 Procedures FB Removal Eye Foreign Body #1: Foreign Body Removal Date: 12/20/21 Location: eye (R) Topical anesthetic used: tetracaine Technique: irrigation and eye wash bottle Procedure performed under: other (morales lamp) Patient tolerated procedure: well Foreign Body Removal Narrative: Corneal abrasion noted horizontally at 6 o'clock position. No FB identified. MDM - Eye Problem MDM Narrative Medical decision making narrative: Advised supportive measure
== END 2021-12-20 19:15 | disposition home or self-care (01) ==
PROVIDERS: Emergency Provider Nurse Practitioner Family
DX: S05.01XA Injury of conjunctiva and corneal abrasion without foreign body, right eye, initial encounter (principal); W51.XXXA Accidental striking against or bumped into by another person, initial encounter; Z86.16 Personal history of COVID-19
CPT/HCPCS: 99213; A9270; G0463

== ENCOUNTER 2022-01-06 19:30 | Emergency (ER) | payer OTHER, SELFPAY ==
[2022-01-06 19:35] VITALS: BP 131/82; PULSE 96; RESP 18; TEMP 36.6; O2SAT 100
[2022-01-06] MEDS: methylPREDNISolone SOD SUCC 125 MG VIAL IM (19:49)
--- NOTE | 2022-01-06 19:54 | ED.GENADULT ---
HPI - General Adult General Chief complaint: Skin/Abscess/Foreign Body Stated complaint: Welts on arms and legs Source: patient Mode of arrival: ambulatory Limitations: no limitations History of Present Illness HPI narrative: Patient presents for evaluation of pruritic erythematous areas to her right upper extremity and lower extremity since this morning. She initially noticed 1 area to her right upper extremity and thought she was bit by mosquito. Later in the day someone informed her that there were additional areas to her right upper extremity. She now notes 1 to her left lower extremity. Areas are raised and annular in appearance. No new lotions, soaps, detergents, topical products. She has not tried any therapies to assist with her symptoms. Denies any difficulty breathing or swallowing. No additional complaints or concerns. Related Data Allergies Allergy/AdvReac Type Severity Reaction Status Date / Time No Known Allergies Allergy Verified 01/06/22 19:42 Review of Systems Review of Systems: CONSTITUTIONAL: Denies fever, chills, or sweats. EYES: Denies visual changes, redness, or discharge. ENT: Denies rhinorrhea, congestion, sore throat, or otalgia. CARDIOVASCULAR: Denies chest pain, palpitations, or edema. RESPIRATORY: Denies cough or dyspnea. GASTROINTESTINAL: Denies abdominal pain, nausea, vomiting, or diarrhea. GENITOURINARY: Denies dysuria or hematuria. SKIN: Reports areas of raised redness with associated itching to the right upper extremity and lower extremity. MUSCULOSKELETAL: Denies back pain, joint pain, or myalgia. NEUROLOGIC: Denies headache, numbness, dizziness, or weakness. PSYCHIATRIC: Denies anxiety or depression. [facility] Past Medical History Medical History Kidney stones Surgical History Surgical History History of delivery Family History Family History Other Family history unknown Social History Social History Smoking status: Never smoker Alcohol intake: never Substance use: never Living arrangements: with family Gender identity (if verbalized by the patient): Female Spiritual care concerns: No Exam Narrative: GENERAL: Well-appearing, well-nourished, and in no acute distress. HEAD: Normocephalic, atraumatic. EYES: PERRLA and EOMI. ENT: Nares clear, no rhinorrhea or epistaxis. Mucous membranes moist. Oropharynx without tonsillar hypertrophy exudate or other lesions. Bilateral TMs pearly marie nonbulging NECK: Supple. No adenopathy or masses. No carotid bruits or JVD CHEST: Clear to auscultation. No respiratory distress. No wheezes rales or rhonchi HEART: Regular rate and rhythm. No murmur heard. Normal peripheral pulses. ABDOMEN: Soft, nontender, nondistended, normal active bowel sounds. EXTREMITIES: Normal range of motion. No edema. SKIN: There are several raised erythematous wheals to the right upper extremity the largest 7 cm in diameter. There is a raised erythematous wheal to the left lower extremity which is 4.5 cm in diameter. NEURO: No focal deficits. Alert and oriented x3. PSYCH: Normal mood and affect. Course Course Emergency Course: This is a 41-year-old female who presented for evaluation of redness and itching to her right upper extremity and left lower extremity since this morning. This appears to be some type of allergic reaction. She was given Solu-Medrol 125 mg IM x1. She has no involvement of her airway. Will DC with Benadryl and prednisone. Follow-up outpatient for further evaluation and treatment and go to the ER for difficulty breathing or swallowing. Patient in agreement with plan of care. Level of Care: Express Care Visit Vital Signs Vital signs: Vital Signs Temperature 36.6 C 01/06/22 19:3
== END 2022-01-06 19:56 | disposition home or self-care (01) ==
PROVIDERS: Emergency Provider Nurse Practitioner; PCP Family Medicine
DX: T78.40XA Allergy, unspecified, initial encounter (principal)
CPT/HCPCS: 96372; 99213; G0463; J2930